=== PATIENT | male | born 1980 | race Caucasian/White ===

== ENCOUNTER 2017-01-22 19:39 | Emergency (ER) | payer BC ==
[~2017-01-22] VITALS: Ht 177.8 cm; Wt 110.9 kg
[~2017-01-22 19:39] MED LIST: BACTRIM DS 8001 TAB PO; CEPHALEXIN500 M1 PO; GRISEOFULVIN500 MG PO; LORTAB 5/500 501 TAB PO; NO HOME MEDICATIONS
[2017-01-22 19:42] VITALS: BP 159/86; PULSE 63; TEMP 98.5
[2017-01-22] MEDS ORDERED: NORCO 325 MG-51 TAB PO (20:32)
== END 2017-01-22 20:54 | disposition home or self-care (01) ==
LOC: COL.ER 19:39
DX: S67.01XA Crushing injury of right thumb, initial encounter (principal); W23.0XXA Caught, crushed, jammed, or pinched between moving objects, initial encounter

== ENCOUNTER 2021-02-21 10:13 | Outpatient (RCR) | payer BC ==
[~2021-02-21 10:13] MED LIST changes: +NORCO 325 MG-51 TAB PO
== END 2021-05-22 ==
LOC: PT.GENESIS
DX: R42 Dizziness and giddiness (principal)